=== PATIENT | female | born 1985 | race Caucasian/White ===

== ENCOUNTER 2023-07-17 13:16 | Emergency (ER) | payer BC, SELFPAY ==
[2023-07-17 13:18] VITALS: BP 140/96
[2023-07-17 14:18] VITALS: BMI 23.7
--- NOTE | 2023-07-17 14:34 | ED.GENMED ---
History of Present Illness
General
Chief Complaint: Abdominal Pain
Time Seen by Provider: 07/17/23 14:34
Travel History
Have you had any contact with someone who has COVID-19?: No
Do you have any symptoms of coronavirus? Fever > 100 degrees, chills, cough, shortness of breath, sore throat, loss of taste or smell, muscle aches, or headache?: No
History of Present Illness
History of Present Illness:
HPI: Patient presents with supraumbilical pain. The patient has had very similar episode about a year and a half ago that was self-limited after 5 months. She did not see GI at that time but who is a physician in the local area reports
having a normal CBC and CMP. Over the past couple days symptoms have worsened/recurred. She has not had vomiting or nausea or diarrhea but reports some degree of constipation. She has had a and tummy tuck.
EXAM:
GENERAL: Well appearing in no distress
HEENT: Moist oral mucosa
CARDIOVASCULAR: No murmurs, normal heart rate, regular rhythm, No chest wall tenderness
PULMONARY: No respiratory distress, breath sounds are clear and equal
ABDOMEN: Soft with no peritoneal signs, no significant tenderness in any of the abdominal quadrants with the exception of the supraumbilical region palpable hernia
NEUROLOGIC: Excellent strength all extremities, no coordination deficits
PSYCHIATRIC: Appropriate mental status, normal insight and judgement
EXTREMITIES: Nontender, no edema, moves all extremities equally
SKIN: No rash, no lesions
TIME OF INITIAL ENCOUNTER: 2:35 PM
NUMBER AND COMPLEXITY OF PROBLEMS ADDRESSED AT THE ENCOUNTER
� Chronic conditions affecting care: Has had abdominal lipoplasty and breast augmentation
� Acute Exacerbation and/or Progression of Chronic Illness: This is acute but recurring problem
� Differential Diagnosis includes: Closed-loop hernia, ventral wall hernia, bowel obstruction, pancreatitis, biliary colic unlikely
AMOUNT AND/OR COMPLEXITY OF DATA TO BE REVIEWED AND ANALYZED
� I performed an independent evaluation of and my interpretation is:
EKG:
CT: CT imaging shows a left ovarian cyst but otherwise shows no acute abnormality to explain the symptoms
X-rays:
Laboratory Studies: CBC, CMP, lipase, hCG all negative
Other:
� Review of other/old records: Labs from February 2023 showed a normal white count and normal hemoglobin and normal chemistries but C-reactive protein was slightly elevated at 21
� Clinical information was obtained by an independent historian: I spoke to the , physician at bedside
� Prescriptions/Medications Considered but not given:
� Further testing considered but not performed:
RISK OF COMPLICATIONS AND/OR MORBIDITY OR MORTALITY OF PATIENT MANAGEMENT
� Social determinants of health affecting care: Lives at home
� Discussion with other providers: Notified GI front office to expedite follow-up
� Escalation of care including admission/observation vs risk of discharge considered: Given patient's recurrence of pain which is described rather significant will obtain CT imaging with oral and IV contrast. She also has some
degree of constipation this does not appear to be a significant factor. I offered analgesia including just Toradol however she declines. On reassessment at 6:15 PM, the patient appears fairly comfortable and is to follow-up with GI as an
outpatient. I also suggested trying a 2-week course of [id number] omeprazole.
Phy Exam
Physical Exam
Physical Exam:
See HPI
Course
Orders/Labs/Results
Orders:
Orders
07/17/23 14:40
0.9% Sodium Chloride 1000 ml [Nss] 1,000 ml IV BOLUS
Iohexol [Omnipaque] See Protocol PO NOW STA
07/17/23 14:41
CT Abd/pel W Iv And Oral Contr Urgent
Comment:
Reason For Exam: supraumbilical pain severe
Test Result ONCE
07/17/23 14:53
Basic Metabolic Panel Urgent
Complete Blood Count/With Diff Urgent
HCG, Serum Qualitative Screen Urgent
LFT [Bfiix-Isub-Wixmtzy] Urgent
Lipase Urgent
07/17/23 14:53
07/17/23 14:53
Vital Signs
Initial and Last Documented VS:
Initial Vital Signs
Temp Pulse Resp BP Pulse Ox
98.1 F 89 16 140/96 98
07/17/23 13:18 07/17/23 13:18 07/17/23 13:18 07/17/23 13:18 07/17/23 13:18
Last Documented Vital Signs
Temp Pulse Resp BP Pulse Ox
98.1 F 89 16 140/96 98
07/17/23 13:18 07/17/23 13:18 07/17/23 13:18 07/17/23 13:18 07/17/23 13:18
*Critical Care Note
Total Time (30-74mins, 75-104mins- exclusive of procedures): Not Applicable
ED Attending Note
-
Portions of this chart may have been created with voice recognition software.� Occasional wrong word or��sound alike� substitutions may have occurred due to the inherent limitations of voice recognition software.
Discharge Plan
Departure
Patient Disposition: Home (Routine Discharge)
Date of Disposition: 07/17/23
Time of Disposition: 18:09
Patient with high blood pressure during this ER visit?: Yes
Discharge Problem:
Abdominal pain
Referrals:
Rose Marie Pink MD [Active] - Follow up in 2-3 days
Truong Cooper MD [Family Provider] -
Activity Restrictions/Additional Instructions:
The cause of your symptoms is unclear. I recommended to a course of [id number] omeprazole. I contacted the GI front office to try to get you into his be seen sooner. They should be calling you on Wednesday
Interventions
Interventions:
*Risk Screen - Suicide Last Done: 07/17/23 13:18
*General Assessment Last Done: 07/17/23 13:18
*Neglect/Abuse Screening Last Done: 07/17/23 13:18
Discharge Date and Time
Print Language: WOLOF
[2023-07-17] MEDS: NSS 1000 IV (14:55)
[2023-07-17] MEDS: OMNIPAQUE 50 ML PO (15:00)
[2023-07-17 15:10] LABS: % Basophils 1.2 % (0-2); % Eosinophils 1.4 % (0-6); % Immature Granulocytes 0.3 % (0-0.5); % Lymphocytes 39.2 % (20.5-51.1); % Monocytes 7.6 % (1.7-9.3); % Neutrophils 50.3 % (42.2-75.2); Absolute Basophils 0.1 10^3/uL (0-0.2); Absolute Eosinophils 0.1 10^3/uL (0-0.7); Absolute Lymphocytes 2.3 10^3/uL (1.2-3.4); Absolute Monocytes 0.4 10^3/uL (0.1-0.6); Absolute Neutrophils 2.9 10^3/uL (1.4-6.5); Hematocrit 41.4 % (37.0-47.0); Mean Corp Hgb Conc. 33.8 g/dL (33.0-37.0); Mean Corpuscular Hgb 30.4 pg (27.0-31.0); Mean Corpuscular Volume 89.8 fL (81.0-99.0); Mean Platelet Volume 9.2 fL (7.4-10.4); Nucleated Red Blood Cells % 0 %; Platelet Count 264 10^3/uL (130-400); Red Blood Cell Count 4.61 10^6/uL (4.20-5.40); Red Cell Dist. Width 12.1 % (11.5-14.5); White Blood Cell Count 5.8 10^3/uL (4.8-10.8)
[2023-07-17 15:22] LABS: HCG, Serum Qualitative Screen Negative
[2023-07-17 15:27] LABS: ALT (SGPT) 15 U/L (0-35); AST (SGOT) 24 U/L (14-36); Albumin 4.9 g/dl (3.5-5.0); Alkaline Phosphatase 66 U/L (38-126); Blood Urea Nitrogen 12 mg/dl (7-17); Calcium 9.8 mg/dl (8.4-10.2); Carbon Dioxide 24 mmol/L (22-30); Chloride 104 mmol/L (98-107); Estimated Creatinine Clearance 93 ml/min; Glucose 84 mg/dl (70-99); Lipase 117 U/L (23-300); Sodium 136 mmol/L (135-145); Total Bilirubin 0.9 mg/dl (0.2-1.3); Total Protein 8.1 g/dl (6.3-8.2); eGFR > 60.00
== END 2023-07-17 18:48 | disposition home or self-care (01) ==
LOC: EMR 13:16
PROVIDERS: EMERGENCY PHYSICIAN Emergency Medicine; FAMILY PHYSICIAN Family Medicine
DX: R10.9 Unspecified abdominal pain (principal); K59.00 Constipation, unspecified; R03.0 Elevated blood-pressure reading, without diagnosis of hypertension
CPT/HCPCS: 99285; 96360; 74177; 80048; 80076; 83690; 84703; 85025; Q9967

== ENCOUNTER → 2023-08-30 06:24 | Day surgery (SDC) | payer BC, SELFPAY | LOC: GI 06:24 | PROVIDERS: ATTENDING PHYSICIAN Internal Medicine Gastroenterology | DX: K31.7 Polyp of stomach and duodenum (principal); K31.89 Other diseases of stomach and duodenum; R10.33 Periumbilical pain; R12 Heartburn | CPT/HCPCS: 43239; 88305; 88342 ==